=== PATIENT | male | born 1970 | race Caucasian/White ===

== ENCOUNTER 2016-10-29 06:54 | Day surgery (SDC) | payer OTHER ==
[~2016-10-29 06:54] MED LIST: LACTULOSE 10 G/15 ML BTL PO PRN
== END 2016-10-29 06:55 | disposition home or self-care (01) ==
LOC: AMB 06:54
PROVIDERS: ATTEND Internal Medicine
DX: K29.70 Gastritis, unspecified, without bleeding (principal)

== ENCOUNTER 2016-12-18 07:45 | Day surgery (SDC) | payer OTHER ==
[~2016-12-18 07:45] MED LIST changes: -LACTULOSE 10 G/15 ML BTL PO PRN; +RINGER'S SOLUTION,LACTATED 1,000 ML IV PRN
[2016-12-18] MEDS ORDERED: RINGER'S SOLUTION,LACTATED 1,000 ML IV ONE (09:31)
[2016-12-18] MEDS ORDERED: RINGER'S SOLUTION,LACTATED 1,000 ML IV PRN (10:57)
[2016-12-18 11:45] VITALS: BP 128/81
--- NOTE | 2016-12-18 20:08 | OR ---
Operative Report - Dictated Report Narrative: Operative Report Date of operation: 12/18/2016 Preoperative diagnosis: Abdominal pain, nausea vomiting, no prior dedicated: Studies Postoperative diagnosis: Hiatal hernia, esophagitis, gastropathy (pathology and CLOtest pending ). Normal colonoscopy Operation: EGD with biopsies. Colonoscopy Surgeon: Dr Brito Anesthesia: CAM BAKER CRNA Indications for procedure: The patient is a 46-year-old male referred by Dr Adam. He has a one-year history of abdominal bloating nausea or vomiting and discomfort. He has had no previous dedicated: Studies Findings: Mild esophagitis, hiatal hernia, gastropathy. Normal-appearing duodenum. Normal colonoscopy with exception of prep irritation in the rectum. Narrative of procedure: The patient was identified preoperatively, and prior to the administration of anesthetic a multidisciplinary timeout was observed EGD: With the patient in the recumbent position, a bite-block was placed, intravenous sedation was administered, and the patient's eyes covered with a towel. The flexible fiberoptic gastroscope was advanced into the posterior pharynx which appeared normal. The supraglottic larynx appeared normal. The cords appeared normal, moved well, and opposed in the midline. The scope was advanced under direct vision into the proximal esophagus which appeared normal. The esophagus appeared freely distensible with normal mucosa. The esophageal mucosa appeared normal down to the gastroesophageal junction which was sharp and evidenced mild inflammation. The GE junction appeared normally distensible. There was a small sliding hiatal hernia. The scope was advanced into the stomach proper which was insufflated with air. There was rowley gastritic erythema but no ben ulcers or neoplastic lesions were appreciated including a retroflex view of the gastric fundus. The scope was redirected toward the pylorus. There was mild erythema on prepyloric folds. The pylorus appeared patent. The scope was advanced into the duodenal bulb which appeared normal. The scope was advanced further to the horizontal portion of the duodenum which appeared normal, specifically the villous architecture appeared well preserved and clear bile was present. The scope was slowly withdrawn through the duodenal bulb with confirmation that no active ulcer was present. The scope was withdrawn into the stomach and parts sales representative biopsies of gastric mucosa obtained for CLOtest and pathology. The biopsy sites were seen to be hemostatic. The insufflated air was removed, the scope withdrawn from the patient, and this portion of the procedure terminated. COLONOSCOPY: The patient was then placed in the left lateral position, and the perineum was inspected. There was no evidence of pilonidal disease or skin breakdown. The external appearance of the anus was normal. Sphincter tone was good. The flexible fiberoptic colonoscope was inserted into the rectum which was insufflated with air. The rectal mucosa and submucosal vascular pattern appeared normal with exception of some nonspecific lymphoid aggregates due to prep irritation. The the prep was seen to be complete. The scope was advanced through the sigmoid colon, up the descending colon, and around the splenic flexure where the triangular haustral architecture of the transverse colon was seen. The scope was advanced across the transverse colon, around the hepatic flexure to the cecum, where the confluence of tenia and the ileocecal valve were identified. The mucosa at this level appeared normal. The scope was then slowly withdrawn in a circular fashion so that all aspects of colonic mucosa were inspected. The colon was somewhat redundant in course and capacious in caliber. The haustral architecture appeared well preserved throughout with no evidence of external compression. With exception of mild rectal irritation, the mucosa and submucosal vascular pattern appeared normal, specifically there was no gross evidence to suggest colitis or inflammatory bowel disease and no AV malformations were seen. No diverticulosis was frankly demonstrated. No polyps were encountered. The scope was gradually withdrawn to the level of the rectum. As much insufflated air as possible was removed. The scope was withdrawn from the patient and the procedure terminated. The patient tolerated the anesthetic and procedure well without complication and was transferred back to the ambulatory surgery area awake and in stable condition. The patient remained stable throughout a period of postoperative observation. He denied abdominal discomfort, was able to tolerate by mouth intake, and was up without assistance. I shared the operative findings with the patient and he was given copies of the photographs which appear in the medical record. He was discharged home with instructions not to engage in hazardous activity today, but may resume normal activity tomorrow, and advance diet as tolerated. He is to continue those medications as listed in the history and physical exam. I made arrangements to contact him with the biopsy reports and will make additional recommendations for treatment and follow-up based upon those results. Reviewed and electronically signed
== END 2016-12-18 07:46 | disposition home or self-care (01) ==
LOC: AMB 07:45
PROVIDERS: ATTEND Surgery
PROC: 0DJD8ZZ Inspection of Lower Intestinal Tract, Via Natural or Artificial Opening Endoscopic (ICD-10-PCS; principal; 2016-12-18 09:00)
PROC: 0DB68ZX Excision of Stomach, Via Natural or Artificial Opening Endoscopic, Diagnostic (ICD-10-PCS; 2016-12-18 09:00)
DX: Z12.11 Encounter for screening for malignant neoplasm of colon (principal); K21.0 Gastro-esophageal reflux disease with esophagitis; K44.9 Diaphragmatic hernia without obstruction or gangrene; K29.70 Gastritis, unspecified, without bleeding; E78.5 Hyperlipidemia, unspecified; Z68.34 Body mass index [BMI] 34.0-34.9, adult
CPT/HCPCS: 43239; 87081; G0121

== ENCOUNTER 2017-01-06 11:16 | Emergency (ER) | payer OTHER ==
--- NOTE | 2017-01-06 11:56 | ERNOTE ---
Abdominal HPI - Narrative Date of Service: 01/06/17 - General Chief Complaint: Abdominal Pain Time Seen by Provider: 01/06/17 11:29 Source: patient, RN notes reviewed, past records Exam Limitations: no limitations - Immun/Allergies/Home Medications Immunizatons: IMMUNIZATION HX History of Influenza Vaccine No Hx Pneumococcal Vaccination No Allergies/Adverse Reactions: Allergies No Known Allergies Allergy (Verified 01/06/17 11:23) Home Medications: HOME MEDICATIONS Omeprazole 40 mg PO DAILY 11/26/16 [Last Taken Unknown] Simvastatin [Zocor] 20 mg PO HS 11/26/16 [Last Taken Unknown] Vitamin D3 1 tab PO DAILY 11/26/16 [Last Taken Unknown] Wheat Dextrin [Benefiber] 144 gm PO DAILY 11/26/16 [Last Taken Unknown] - History of Present Illness Narrative: 47 year old male presents to the ED for abdominal pain that has been going on for approximately a year. He has had a colonoscopy and EGD in the past month. 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 He is on omeprazole. He has also had a gall bladder ultrasound that was unremarkable. He reports bloating and intermittent pain that has varied in location. Today he is having pain in the right upper quadrant. He reports that his bowel movements have also been very irregular for many years. He takes Benefiber occasionally. Prior Abdominal Problems: Present: similar symptoms Prior Treatment: Present: recently seen, treated by physician. Absent: currently on antibiotics Review of Systems - Review of Systems Constitutional: Absent: fever, chills, fatigue EYE: Present: no symptoms reported ENT: Present: no symptoms reported Respiratory: Absent: shortness of breath, cough Cardiology: Absent: chest pain, palpitations Gastrointestinal/Abdominal: Present: abdominal pain. Absent: nausea, vomiting, eating less, drinking less Genitourinary: Present: no symptoms reported Musculoskeletal: Absent: back pain, muscle pain Skin: Absent: rash, lesions, lumps Neurological: Absent: headache, dizziness/light-headedness Endocrine: Present: no symptoms reported Hematologic/Lymphatic: Present: no symptoms reported Psych: Present: no symptoms reported - Patient's Past Medical History Patient History - Medical: GERD Patient History - Cardiac/Respiratory: Hyperlipidemia Patient History - Cancer: No Hx of Cancer Patient History - Surgical Procedures: Colonoscopy, EGD, Vasectomy, Other Patient History - Other: None - Family History Father Family History - Medical: Diabetes Type 2 Family History - Cardiac/Respiratory: Hypertension Family History - Cancer: Other Mother Family History - Medical: No pertinent hx Family History - Cardiac/Respiratory: No pertinent hx Family History - Cancer: No pertinent family hx - Social History Living Situations: home Abuse History: No History of abuse Psych History: No pertinent hx Alcohol Use: rarely Drug Use: none - Immunizations Hx Pneumococcal Vaccination: No History of Influenza Vaccine: No Physical Exam - Physical Exam General Appearance: Present: wd/wn, alert, no apparent distress Neck: Present: normal inspection, nontender, supple Respiratory: Present: no respiratory distress, normal breath sounds, no accessory muscle use, lungs clear Cardiovascular/Chest: Present: regular rate, rhythm, no murmur, normal peripheral pulses Gastrointestinal/Abdominal: Present: soft, tenderness - RUQ, abnormal bowel sounds - sluggish, distended - obese, proturberant abdomen, hernia - umbillical and ventral, both reducible and nontender. Absent: mass Back Exam: Present: normal inspection, no CVA tenderness Extremity Exam: Present: normal inspection, normal range of motion, no edema Neurological Exam: Present: alert, oriented, normal mood/affect, no motor/ sensory deficits Skin Exam: Present: normal color, warm/dry ED Progress - Results and Orders Patient's Lab Results:: I have reviewed the patient's lab results. - Vital Signs Patient's Vital Signs:: I have reviewed the patient's vital signs. Vital Signs: Vital Signs 01/06/17 01/06/17 11:17 11:35 Temperature 36.2 C L Pulse Rate 73 72 Respiratory 12 Rate Blood Pressure 151/95 135/96 O2 Sat by Pulse 96 94 Oximetry - X-Ray X-Ray #1 X-Ray: abdomen Interpretation: Reviewed by me X-ray Comments: Nonobstructive bowel gas pattern with moderate stool retention present - Progress/Reassessment Chief Complaint: Abdominal Pain Progress:: Unchanged Departure Clinical Impression: Abdominal pain Qualifiers: Abdominal location: right upper quadrant Qualified Code(s): R10.11 - Right upper quadrant pain Constipation Qualifiers: Constipation type: unspecified constipation type Qualified Code(s): K59.00 - Constipation, unspecified - Departure Disposition: Home Follow Up Needed Condition: Good Instructions: Constipation, Adult, [id number] Additional Instructions: Continue Benefiber Start Miralax - titrate dose to desired effect Consider seeing gastroenterology if symptoms continue Referrals: Marika Adam MD [Primary Care Provider] -
[2017-01-06 12:11] LABS: Hematocrit 45.8 % (42.0-52.0); Hemoglobin 15.9 gm/dL (13.5-18.0); Mean Cell Volume 93.1 fl (78-100); Mean Corpuscular Hemoglobin 32.3 pg (27-31); Mean Corpuscular Hgb Conc 34.7 g/dl (32-36); Mean Platelet Volume 9.8 fl (6.0-9.5); Neutrophil # 5.7 K/mm3 (1.3-6.0); Neutrophil % 63.3 % (42-75.0); Platelet Count 222 K/mm3 (150-450); Red Blood Count 4.92 M/mm3 (4.7-6.0); Red Cell Distribution Width 12.8 % (11.5-14.0)
[2017-01-06 12:21] LABS: Albumin * 3.7 gm/dl (3.4-5.0); BUN/Creatinine Ratio 8.6 (9.0-21.6); Bilirubin, Total 0.3 mg/dL (0.0-1.1); Ca. Corrected For Albumin 9.3 mg/dL (8.4-10.2); Calcium * 9.4 mg/dL (7.9-10.9); Carbon Dioxide 24.9 mmol/L (24-32.6); Potassium 3.9 mmol/L (3.4-4.6); Total Protein 8.2 gm/dL (6.2-8.2)
[2017-01-06 15:16] VITALS: BP 146/88
== END 2017-01-06 13:13 | disposition home or self-care (01) ==
LOC: ER 11:16
DX: R10.11 Right upper quadrant pain (principal); K59.00 Constipation, unspecified; K21.9 Gastro-esophageal reflux disease without esophagitis; E78.5 Hyperlipidemia, unspecified